=== PATIENT | female | born 1950 ===

== ENCOUNTER → 2020-04-15 | Outpatient (CLI) | payer OTHER, BC ==
[~2020-04-15] VITALS: Ht 149.9 cm; Wt 90.1 kg
[~2020-04-15] MED LIST: ASA81BEC PO; CLARITIN10 MG PO; CRESTOR20 MG PO; DULOXETINE HCL30 MG PO; GLIPIZIDE 10 MG10 MG PO; GLUCOPHAGE1000 MG PO; GRALISE600 MG PO; KLOR-CON 10 ER10 MEQ PO; MELOXICAM15 MG PO; PROBIOTIC1 EAC7 PO; SUPER THERAVIT1 EACH PO; TYLENOL ARTHRI650 MG PO; VITAMIN C + RO500 MG PO; XARELTO20 MG PO
--- NOTE | ~2020-04-15 | HPC ---
[facility] [place] [address] PAIN MANAGEMENT CONSULTATION Name: SHIV BENTON Room #: REG [facility].#: [id number] Admission: 04/15/20 Attend Phys: Gautam Patel MD Discharge: Date of : 46 Report #: [id number] THIS REPORT FOR: cc: Kishor Forbes MD,Gautam Kovacs MD, MD ~ CC: KISHOR Patel CARMITA PABONRosanne DATE OF SERVICE: 04/15/2020 CHIEF COMPLAINT: Low back pain with radiation into the buttocks, but not further. HISTORY OF PRESENT ILLNESS: The patient is a pleasant 69-year-old that I am seeing today at the request of Dr. Villanueva. She has longstanding back pain and has been treated since 2003 at pain clinics. Much of her pain treatment has been provided at Pain and she has seen several physicians there, most recently Dr. Yulisa Monge. She has pain that she describes as a 9/10 in intensity in her low back radiating into her hips. It is worse with standing or walking and improves when she is sitting or lying down. She has had some injections from Dr. Kranthi Mckinley. These sound to be trigger point injections, but they have been quite successful providing pain relief for up to 3 months. She is here today for another opinion and treatment. She has seen Dr. Monge and there has been some discussion about possibly transitioning her spinal cord stimulator to a new device. She was an early adopter of spinal cord stimulation therapy in 2003, underwent placement of a [employer] device. Most likely, this was a Pisces four device which contained only 4 electrodes on a single lead. She then had an upgrade in 2008 to a dual lead system and they also placed lateral leads for peripheral nerve stimulation. Unfortunately, after her first few years of good relief with simple system, she never quite got the same relief. She had a rechargeable pulse generator placed in 2013 and has really not had much benefit from her spinal cord stimulator device since. She uses it, but only about 7-8 periods over a 30-day stretch and she reports that it does not provide much relief. When asked if she would go through the process again, she said she would not, it has not provided enough relief. She attended an information gathering event, mostly a marketing device for Nevro high frequency stimulation. There is some thought that this is more helpful for mechanical back pain than other devices and she was impressed by this thought. She came to understand my opinion on this. MEDICATIONS: Glipizide, metformin, Crestor; Gralise, currently 600 mg once [address] [address] PAIN MANAGEMENT CONSULTATION Name: SHIV BENTON Room #: REG Ailin Vann#: [id number] Admission: 04/15/20 Attend Phys: Gautam Patel MD Discharge: Date of : 46 Report #: [id number] daily taken in the afternoon. She was taking a 300 mg dose in the morning, but it is $50 a month, quite expensive for her. Multivitamins, vitamin C, aspirin, Claritin, potassium, probiotic and meloxicam. ALLERGIES: VANCOMYCIN. PAST SURGICAL HISTORY: She has type 2 diabetes, managed with medication, she does not take insulin. Two prior back surgeries, a history of heart disease. She had an episode of syncope and was placed on Xarelto. This may be discontinued sometime in the future. She does not have atrial fibrillation. She complains of degenerative osteoarthritis. SOCIAL HISTORY: She is retired and and lives with her . She denies use of tobacco, alcohol or any other illicit substances. Her impacted pain score is 45 suggesting that she has a fair amount of discomfort during many day-to-day activities including walking 10/10, normal work 7/10 and she complains of psychological effects with mood and her relationships with others are affected by her daily pain. PHYSICAL EXAMINATION: GENERAL: She is a very pleasant 69-year-old female, alert and oriented. Both of us are wearing masks due to COVID restrictions and they remain on throughout her visit. VITAL SIGNS: She is 5 feet 11 inches, 198 pounds, BMI is 40.1, blood pressure 116/70, heart rate 65, respirations 20, O2 sat 97, pain intensity is 9/10. She can move independently from sitting to standing position, but has a bit of a waddling gait. She complains of pain as she walks. HEENT: Normal. Pupils are equal, round, react to light. She has a slight tic above her right eye, but it is very minor and she brings it to my attention. She complains of some headaches in that area. NECK: Supple with some pain with neck extension, but this is not her primary complaint. CHEST: Clear. CARDIAC: Rhythm was regular. No audible murmur. ABDOMEN: Soft. She is obese. MUSCULOSKELETAL: Reveals tenderness across the lumbosacral segment. Several scars across the back are noted from previous surgery and placement of devices. They are mildly tender. The pulse generator is in her right buttock cheek and overlies the sacroiliac joint and may be a cause of some mechanical pain. She has tenderness also overlying the gluteal muscles bilaterally extending out of the crease, but no further. Straight leg raising is negative. Deep tendon reflexes are absent in knees and ankles. Sensation to light touch is intact. IMPRESSION: 1. Chronic intractable low back pain without radiculopathy. Lumbar spondylosis. Post-laminectomy syndrome. [facility] [address] [place] [address] PAIN MANAGEMENT CONSULTATION Name: SHIV BENTON Room #: REG [employer].#: [id number] Admission: 04/15/20 Attend Phys: Gautam Patel MD Discharge: Date of : 46 Report #: [id number] 2. Obesity. 3. Type 2 diabetes. 4. 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 RECOMMENDATIONS: We spoke first regarding my opinions on spinal cord stimulation therapy. I believe it would be very difficult to transition to a Nevro device. The epidural space is significantly scarred after such longstanding period with 2 leads placed in 2008. The leads would have to be surgically explanted carefully avoiding any injury to dura and I believe a neurosurgeon would be necessary to place new leads to be utilized with the Nevro device. There is a possibility you could use the indwelling leads, but scar tissue likely would restrict stimulation after 11 years. In short, I think that there are substantial reasons why this would be ineffective. It is very expensive, there are also risks associated with it, I think it would be a latter option in my opinion. Her pain is mostly spondylitic. It is across the lumbosacral segment. Facet arthropathy is common in her age group. She might benefit from some facet injections. We discussed her gabapentin. She could not take a generic gabapentin earlier because of daytime side effects causing drowsiness. Since she has been on Gralise for some time, it might save her money to give another trial to 3 times a day gabapentin. It is the same medication she is currently taking in a long release form and it might save her $50 a month. She would be grateful for the additional $600 a year if she could transition. She and her receive her medications from the post up at [facility]. She is not a candidate for a strong medication. She has significant side effects with opioids and other drugs and I would be careful about adding more medicines to her regimen at this point in time. Thank you very much for the interesting consultation. Followup visit scheduled at her discretion if she would like to try some diagnostic facet injections. By: [id number] Gautam Patel MD /nt
[2020-04-15 13:03] VITALS: BP 116/70
--- NOTE | 2020-04-15 13:20 | NUR ---
Pain Clinic Assessment: 1. History of Osteoarthritis: BACK HIPS History of Rheumatoid Arthritis: Not Applicable 2. Height: 4 ft. 11 in. 149.9 cm. Weight: 198.6 lb. oz. 90.084 kg. Patient's BMI: 40.1 3. Vital Signs: BP: 116/70 Pulse: 65 Resp: 20 Temp: 02 Sat: 97 ECG Mon: 4. Pain Intensity: 9 5. Fall Risk: Dizziness: N Needs help standing or walking: N Fallen in the last 3 months: N Fall risk comments: 6. Patient on Blood Thinner: xarelto 7. History of Hypertension: N 8. Opioid Therapy greater than 6 weeks: N Opiate Contract Signed: 9. Risk Assessment Tool Provided: low-0 10. Functional Assessment Tool: 11. Recreational Drug Use: Never Drug Type: Tobacco Use: Never Smoker Tobacco Type: Amount or Packs/day: How Many Years: Alcohol Use: No Frequency: Quant:
== END ==
LOC: PAIN 09-25 07:06
PROVIDERS: ATTEND Anesthesiology Pain Medicine
DX: M47.816 Spondylosis without myelopathy or radiculopathy, lumbar region (principal); E66.9 Obesity, unspecified; M96.1 Postlaminectomy syndrome, not elsewhere classified; E11.9 Type 2 diabetes mellitus without complications; T85.192D Other mechanical complication of implanted electronic neurostimulator of spinal cord electrode (lead), subsequent encounter; Z88.8 Allergy status to other drugs, medicaments and biological substances; Z79.899 Other long term (current) drug therapy